=== PATIENT | female | born 1935 | race Caucasian/White ===

== ENCOUNTER 2017-02-24 22:18 | Emergency (ER) | payer OTHER ==
[~2017-02-24] VITALS: Ht 167.6 cm; Wt 65.4 kg
[2017-02-24 22:25] VITALS: TEMP 36.5; Ht 167.6 cm; Wt 65.4 kg
[2017-02-24] MEDS ORDERED: HydrALAZINE HCL 20 MG/ML VIAL IV. STA (22:43)
--- NOTE | 2017-02-24 22:44 | EMERGENCY ROOM VISIT NOTE ---
History Report prepared by Ginger: Chito El Under the Supervision of: Dr. Kris Erickson D.O. First contact with patient: 22:33 Chief Complaint: HYPERTENSION Stated Complaint: BP 196/106 WITH DIZZINESS History of Present Illness The patient is an 81 year old female who presents to the Emergency Room with complaints of hypertension exacerbation. The patient's blood pressure was 185 / 90 this morning and reached 196 / 106 tonight. Her baseline pressure is 135 / 90. She has been feeling dizzy today. Her blood pressure is normally under control. The patient is only on Labetalol at this time. She notes that she has been stressed about a recent condominium purchase. She was recently also. She has a history of diabetes. Her last A1C was 6.8. Both of her parents of stroke. Source of History: patient Onset: today Position: other (cardiovascular) Symptom Intensity: up to 196 / 106 Quality: other (hypertension) Timing: other (exacerbation) Review of Systems See HPI for pertinent positives and negatives. A total of ten systems were reviewed and were otherwise negative. Past Medical & Surgical Medical Problems: (1) Diabetes (2) HTN (hypertension) Family History FH: stroke Social History Smoking Status: Never Smoker Marital Status: Occupation Status: retired Current/Historical Medications Scheduled Ascorbic Acid (C 500/Janet Hips), 500 MG PO DAILY Calcium W/ Vitamins D & K (Viactiv), 1 TAB PO BID Cholecalciferol (Vitamin D3), 400 UNITS PO DAILY Cod Liver Oil (Cod Liver Oil 1000 mg), 1,000 MG PO DAILY Flaxseed (Linseed) (Flaxseed Oil), 1,200 MG PO DAILY Labetalol Hcl (Normodyne), 100 MG PO DAILY Metformin Hcl Er (Glucophage Er), 500 MG PO BID Multivitamin (Multivitamin), 1 TAB PO DAILY Omeprazole (Prilosec), 20 MG PO DAILY Simvastatin (Zocor), 20 MG PO QPM Allergies Coded Allergies: Aspirin (Verified Allergy, Unknown, asthma, 02/24/17) Cephalexin (Verified Allergy, Unknown, rash, 02/24/17) Ciprofloxacin (Verified Allergy, Unknown, swelling, 02/24/17) Penicillins (Verified Allergy, Unknown, rash, 02/24/17) Sulfamethoxazole w/Trimethoprim (Verified Allergy, Unknown, hives, 02/24/17 ) Physical Exam Vital Signs Date Time Temp Pulse Resp B/P Pulse Ox O2 Delivery O2 Flow Rate FiO2 02/25/17 01:11 95 20 155/88 96 Room Air 02/24/17 23:48 84 20 157/98 95 Room Air 02/24/17 23:11 95 Room Air 02/24/17 23:05 70 20 184/100 95 Room Air 02/24/17 22:55 73 02/24/17 22:55 95 Room Air 02/24/17 22:25 36.5 80 20 212/114 95 Room Air Physical Exam GENERAL: Awake, alert, well-appearing, in no distress. Appears anxious. HENT: Normocephalic, atraumatic. Oropharynx unremarkable. EYES: Normal conjunctiva. Sclera non-icteric. NECK: Supple. No nuchal rigidity. FROM. No JVD. RESPIRATORY: Clear to auscultation. CARDIAC: Regular rate, normal rhythm. Extremities warm and well perfused. Pulses equal. ABDOMEN: Soft, non-distended. No tenderness to palpation. No rebound or guarding. No masses. RECTAL: Deferred. MUSCULOSKELETAL: Chest examination reveals no tenderness. The back is symmetrical on inspection without obvious abnormality. There is no CVA tenderness to palpation. No joint edema. LOWER EXTREMITIES: Calves are equal size bilaterally and non-tender. No edema. No discoloration. NEURO: Normal sensorium. No sensory or motor deficits noted. SKIN: No rash or jaundice noted. Medical Decision & Procedures ER Provider Diagnostic Interpretation: X ray results as stated below per my interpretation and radiologist interpretation. CHEST ONE VIEW PORTABLE HISTORY: severe hypertension COMPARISON: None. FINDINGS: A few linear densities at the left lung base consistent with subsegmental atelectasis. The lungs are otherwise clear. No pleural effusions. No pneumothorax. The heart is normal in size. IMPRESSION: No acute process. Electronically signed by: Trell Rosario M.D. 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 1.9 x 0.6 cm soft tissue component invades the extra axial space and mildly compresses adjacent frontal sulci. Metastatic disease or myeloma are possibilities. Primary benign or malignant skull neoplasm would also be considered. No hemorrhage. No midline shift or herniation. Involutional and microvascular ischemic changes. Left mastoid fluid. Radiologist: Lazaro Morgan MD. Laboratory Results 02/24/17 00:00 Red Blood Count 4.26, Mean Corpuscular Volume 93.2, Mean Corpuscular Hemoglobin 31.5, Mean Corpuscular Hemoglobin Concent 33.8, Mean Platelet Volume 10.5, Neutrophils (%) (Auto) 63.5, Lymphocytes (%) (Auto) 25.3, Monocytes (%) (Auto) 7.8, Eosinophils (%) (Auto) 3.1, Basophils (%) (Auto) 0.3, Neutrophils # (Auto) 4.25, Lymphocytes # (Auto) 1.69, Monocytes # (Auto) 0.52, Eosinophils # (Auto) 0.21, Basophils # (Auto) 0.02 02/24/17 00:00 Test 02/24/17 00:00 White Blood Count 6.69 K/uL (4.8-10.8) Red Blood Count 4.26 M/uL (4.2-5.4) Hemoglobin 13.4 g/dL (12.0-16.0) Hematocrit 39.7 % (37-47) Mean Corpuscular Volume 93.2 fL (80-100) Mean Corpuscular Hemoglobin 31.5 pg (25-34) Mean Corpuscular Hemoglobin Concent 33.8 g/dl (32-36) Platelet Count 198 K/uL (130-400) Mean Platelet Volume 10.5 fL (7.4-10.4) Neutrophils (%) (Auto) 63.5 % Lymphocytes (%) (Auto) 25.3 % Monocytes (%) (Auto) 7.8 % Eosinophils (%) (Auto) 3.1 % Basophils (%) (Auto) 0.3 % Neutrophils # (Auto) 4.25 K/uL (1.4-6.5) Lymphocytes # (Auto) 1.69 K/uL (1.2-3.4) Monocytes # (Auto) 0.52 K/uL (0.11-0.59) Eosinophils # (Auto) 0.21 K/uL (0-0.5) Basophils # (Auto) 0.02 K/uL (0-0.2) RDW Standard Deviation 47.7 fL (36.4-46.3) RDW Coefficient of Variation 14.0 % (11.5-14.5) Immature Granulocyte % (Auto) 0.0 % Immature Granulocyte # (Auto) 0.00 K/uL (0.00-0.02) Prothrombin Time 10.5 SECONDS (9.0-12.0) Prothromb Time International Ratio 1.0 (0.9-1.1) Activated Partial Thromboplast Time 24.0 SECONDS (21.0-31.0) Partial Thromboplastin Ratio 0.9 Anion Gap 9.0 mmol/L (3-11) Est Creatinine Clear Calc Drug Dose 29.5 ml/min Estimated GFR () 40.7 Estimated GFR (Non- 35.1 BUN/Creatinine Ratio 17.1 (10-20) Calcium Level 9.6 mg/dl (8.5-10.1) Total Bilirubin 0.3 mg/dl (0.2-1) Direct Bilirubin 0.1 mg/dl (0-0.2) Aspartate Amino Transf (AST/SGOT) 13 U/L (15-37) Alanine Aminotransferase (ALT/SGPT) 22 U/L (12-78) Alkaline Phosphatase 53 U/L (45-117) Total Protein 7.1 gm/dl (6.4-8.2) Albumin 4.4 gm/dl (3.4-5.0) Laboratory results reviewed by me Medications Administered Medications (Trade) Dose Ordered Sig/Alvarez Route Start Time Stop Time Status Last Admin Dose Admin Hydralazine HCl (HydrALAZINE INJ) 10 mg NOW STAT IV. 02/24/17 22:43 02/24/17 22:44 DC 02/24/17 23:03 10 MG ECG Indication: other (hypertension) Rate (beats per minute): 71 Rhythm: normal sinus Findings: no acute ischemic change, other (normal axis, normal intervals) ED Course 2234: The patient was evaluated in room B3b. A complete history and physical exam was performed. 3: Hydralazine HCl 10 mg IV. 0115: Patient had an MRI in August after having a similar finding the prior May. The patient is aware that she needs follow up. Medical Decision Differential diagnosis hypertensive episode, hypertensive crisis, hypertensive urgency, renal failure, cardiac dysrhythmia. Repeat examination the patient at 1:20 AM her blood pressures 150/70. She is resting in no distress she is nonfocal neurologically NIH score is 0. I discussed her CAT scan finding of a lytic lesion to the frontal bone on the left side with her. She states that she may have had an MRI for similar presentation in August and the [place]. Patient would like to go home she is going to follow up in [place] with her primary care physician get these records and see if this compares to the MRI. She is aware that this could be cancer and her daughter is aware as well. Patient would like to be discharged her blood pressure is decreased and she will follow up regarding this abnormal CT Impression Primary Impression: HTN (hypertension) Additional Impression: Frontal skull lesion Scribe Attestation The scribe's documentation has been prepared under my direction and personally reviewed by me in its entirety. I confirm that the note above accurately reflects all work, treatment, procedures, and medical decision making performed by me. Departure Information Dispostion Home / Self-Care Referrals No Doctor, Assigned (PCP) Forms HOME CARE DOCUMENTATION FORM, IMPORTANT VISIT INFORMATION Patient Instructions ED HTN Established, My [facility] Additional Instructions Follow-up with her primary care physician for further evaluation of the CT of the brain and have your primary care physician compare this CT with the MRI of the brain you had in August 2016. Problem Qualifiers Primary Impression: HTN (hypertension) Hypertension type: essential hypertension Qualified Codes: I10 - Essential ( primary) hypertension
--- NOTE | 2017-02-24 23:02 | DIAGNOSTIC IMAGING REPORT ---
CHEST ONE VIEW PORTABLE HISTORY: severe hypertension COMPARISON: None. FINDINGS: A few linear densities at the left lung base consistent with subsegmental atelectasis. The lungs are otherwise clear. No pleural effusions. No pneumothorax. The heart is normal in size. IMPRESSION: No acute process. Electronically signed by: Trell Rosario M.D. 02/24/2017 11:01 PM Dictated Date/Time: 02/24/2017 10:58 PM
[2017-02-24 23:11] VITALS: O2SAT 95
[2017-02-24 23:12] LABS: BASO % 0.3 %; BASO ABS # 0.02 K/uL (0-0.2); COMPLETE YES; EOS % 3.1 %; HEMATOCRIT 39.7 % (37-47); LYMPH % 25.3 %; LYMPH ABS # 1.69 K/uL (1.2-3.4); MEAN CELL VOLUME 93.2 fL (80-100); MEAN CORPUSCULAR HEMOGLOBIN 31.5 pg (25-34); MEAN CORPUSCULAR HGB CONC 33.8 g/dl (32-36); MEAN PLATELET VOLUME 10.5 fL (7.4-10.4); MONO % 7.8 %; NEUT % 63.5 %; PLATELET COUNT 198 K/uL (130-400); RED BLOOD COUNT 4.26 M/uL (4.2-5.4); WHITE BLOOD COUNT 6.69 K/uL (4.8-10.8)
[2017-02-24 23:22] LABS: PARTIAL THROMBOPLASTIN RATIO 0.9; PROTHROMBIN TIME (PATIENT) 10.5 SECONDS (9.0-12.0)
[2017-02-24 23:31] LABS: BUN/CREATININE RATIO 17.1 (10-20); CALCIUM 9.6 mg/dl (8.5-10.1); CREATININE 1.4 mg/dl (0.60-1.20); POTASSIUM 3.6 mmol/L (3.5-5.1)
[2017-02-25] MEDS ORDERED: LBT/100 PO (00:01)
[2017-02-25] MEDS ORDERED: METF500T5 PO (00:02)
[2017-02-25] MEDS ORDERED: SIMV20TA2 PO (00:03)
[2017-02-25] MEDS ORDERED: PRLSR20 PO (00:04)
[2017-02-25] MEDS ORDERED: FLAX12003 PO (00:05)
[2017-02-25] MEDS ORDERED: ASCO1TAB4 PO (00:06)
[2017-02-25] MEDS ORDERED: CALC8.5C PO (00:08)
[2017-02-25] MEDS ORDERED: MULT-506 PO (00:09)
[2017-02-25] MEDS ORDERED: CHOL1CAP30 PO (00:10)
[2017-02-25] MEDS ORDERED: COD1000C PO (00:11)
[2017-02-25 01:54] VITALS: BP 172/99; PULSE 101; O2SAT 98
--- NOTE | 2017-02-25 07:15 | DIAGNOSTIC IMAGING REPORT ---
CT OF THE HEAD WITHOUT CONTRAST CLINICAL HISTORY: Dizzy. Headache. Hypertension. COMPARISON STUDY: No previous studies for comparison. CT DOSE: 614.27 mGy.cm TECHNIQUE: Helical axial images of the head were obtained without IV contrast. Automated exposure control was utilized for the study. FINDINGS: No acute intracranial hemorrhage, midline shift or mass effect is present. Ventricular system is normal. Basilar cisterns are patent. Moderate white matter hypodensity suggests small vessel disease. There are no findings to suggest acute dural sinus thrombosis or acute territorial infarct. There is a small amount of fluid within the left mastoid air cells. The sinuses are clear. Note is made of a 3.1 cm lytic lesion within the left frontal bone. There is thinning of the inner table of the calvarium with suspected intracranial extension of this lesion with a 2.7 x 1 cm hypodense component extending into the extra-axial space. IMPRESSION: 1. No acute intracranial hemorrhage. 2. 3.1 cm lytic lesion within the left frontal bone with suspected intracranial extension, as described above. Differential considerations include benign and malignant etiologies such as metastatic disease, myeloma and benign and malignant calvarial lesions. An MRI the brain with and without contrast could be obtained. Correlation with history of malignancy is also recommended. 3. Small amount of fluid within the left mastoid air cells. Electronically signed by: Charly Guajardo M.D. 02/25/2017 7:14 AM Dictated Date/Time: 02/25/2017 7:08 AM
== END 2017-02-25 01:54 | disposition home or self-care (01) ==
LOC: MERGE 22:21 → EDBD 22:21 → C.EDB 22:21
DX: I10 Essential (primary) hypertension (principal); M85.88 Other specified disorders of bone density and structure, other site; Z79.899 Other long term (current) drug therapy; E11.9 Type 2 diabetes mellitus without complications; Z82.3 Family history of stroke

== ENCOUNTER → 2017-11-16 | Outpatient (CLI) | payer OTHER ==
[~2017-11-16] MED LIST: ASCO1TAB4 PO; CALC8.5C PO; CHOL1CAP30 PO; COD1000C PO; FLAX12003 PO; LBT/100 PO; METF500T5 PO; MULT-506 PO; PRLSR20 PO; SIMV20TA2 PO
[2017-11-16 12:28] LABS: BASO % 0.3 %; BASO ABS # 0.02 K/uL (0-0.2); EOS % 2.3 %; EOS ABS # 0.15 K/uL (0-0.5); HEMATOCRIT 40.4 % (37-47); HEMOGLOBIN 13.7 g/dL (12.0-16.0); IG# 0.02 K/uL (0.00-0.02); LYMPH ABS # 1.12 K/uL (1.2-3.4); MEAN CELL VOLUME 94.2 fL (80-100); MEAN CORPUSCULAR HEMOGLOBIN 31.9 pg (25-34); MEAN CORPUSCULAR HGB CONC 33.9 g/dl (32-36); MONO % 9.4 %; MONO ABS # 0.62 K/uL (0.11-0.59); NEUT % 70.7 %; NEUT ABS # 4.66 K/uL (1.4-6.5); PLATELET COUNT 185 K/uL (130-400); WHITE BLOOD COUNT 6.59 K/uL (4.8-10.8)
[2017-11-16 12:49] LABS: HEMOGLOBIN A1C 6.4 % (4.5-5.6)
[2017-11-16 13:42] LABS: ALBUMIN 3.9 gm/dl (3.4-5.0); ALT/SGPT 20 U/L (12-78); AST/SGOT 16 U/L (15-37); BLOOD UREA NITROGEN 19 mg/dl (7-18); CALCIUM 9.2 mg/dl (8.5-10.1); CARBON DIOXIDE 28 mmol/L (21-32); CREATININE 1.02 mg/dl (0.60-1.20); GLUCOSE 119 mg/dl (70-99); SODIUM 134 mmol/L (136-145); TOTAL PROTEIN 6.9 gm/dl (6.4-8.2)
[2017-11-16 13:55] LABS: ALKALINE PHOSPHATASE 48 U/L (45-117); CHOLESTEROL 130 mg/dl (0-200); LDL CHOLESTEROL CALCULATED 53 mg/dl
== END | disposition home or self-care (01) ==
LOC: C.LABBFT 08:10
PROVIDERS: ATTEND Internal Medicine
DX: Z00.00 Encounter for general adult medical examination without abnormal findings (principal); D64.9 Anemia, unspecified; E11.9 Type 2 diabetes mellitus without complications; G45.9 Transient cerebral ischemic attack, unspecified; E78.5 Hyperlipidemia, unspecified; I10 Essential (primary) hypertension

== ENCOUNTER → 2018-02-27 | Outpatient (CLI) | payer OTHER ==
[2018-02-27 16:29] LABS: HEMATOCRIT 35.6 % (37-47); HEMOGLOBIN 11.9 g/dL (12.0-16.0); MEAN CELL VOLUME 88.1 fL (80-100); MEAN CORPUSCULAR HEMOGLOBIN 29.5 pg (25-34); MEAN CORPUSCULAR HGB CONC 33.4 g/dl (32-36); MEAN PLATELET VOLUME 9.8 fL (7.4-10.4); PLATELET COUNT 269 K/uL (130-400); RED CELL DISTRIBUTION WIDTH CV 12.9 % (11.5-14.5); RED CELL DISTRIBUTION WIDTH SD 42.1 fL (36.4-46.3); WHITE BLOOD COUNT 7.77 K/uL (4.8-10.8)
[2018-02-27 16:45] LABS: BLOOD UREA NITROGEN 17 mg/dl (7-18); CALCIUM 9.9 mg/dl (8.5-10.1); CARBON DIOXIDE 29 mmol/L (21-32); CREATININE 1.06 mg/dl (0.60-1.20); GLUCOSE 80 mg/dl (70-99); POTASSIUM 3.9 mmol/L (3.5-5.1); SODIUM 131 mmol/L (136-145)
[2018-02-28 06:25] LABS: HEMOGLOBIN A1C 6.3 % (4.5-5.6)
== END | disposition home or self-care (01) ==
LOC: C.LABBFT 12:30
PROVIDERS: ATTEND Internal Medicine
DX: D64.9 Anemia, unspecified (principal); E11.9 Type 2 diabetes mellitus without complications; I10 Essential (primary) hypertension

== ENCOUNTER 2018-03-02 17:38 | Emergency (ER) | payer OTHER ==
[~2018-03-02] VITALS: Ht 165.1 cm; Wt 66.0 kg
[2018-03-02 17:44] VITALS: TEMP 36.4; Ht 165.1 cm; Wt 66.0 kg
[2018-03-02] MEDS ORDERED: LIDOCAINE/EPINEPH/TETRACAINE 1 EA SYR EXT STA (18:17)
[2018-03-02] MEDS ORDERED: LIDOCAINE 1% BUFFERED INJ 5 ML VIAL INFIL ONE (18:30)
--- NOTE | 2018-03-02 18:50 | EMERGENCY ROOM VISIT NOTE ---
History Report prepared by Ginger: Mariah Feliciano Under the Supervision of: Dr. Thierno Mata M.D. 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 She reports that she was not paying attention to where she was going and ended up tripping and falling. The patient hit her head in the fall and reports a cut on her right eye brow. She also reports some right 5th finger pain. She feels sore all over her body. She denies any vision changes, dental injury, chest pain, SOB, abdominal pain, numbness, or weakness. She is unsure of her tetanus status. She has a history of diabetes. She is on Plavix for a history of TIA. 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 Review of Systems See HPI for pertinent positives & negatives. A total of 10 systems reviewed and were otherwise negative. Past Medical & Surgical Medical Problems: (1) Diabetes (2) HTN (hypertension) Old medical records were reviewed. Nurse's notes were reviewed and I agree with. Family History FH: stroke Social History Smoking Status: Never Smoker Marital Status: Occupation Status: retired Current/Historical Medications Scheduled Ascorbic Acid (C 500/Janet Hips), 500 MG PO DAILY Calcium W/ Vitamins D & K (Viactiv), 1 TAB PO BID Cholecalciferol (Vitamin D3), 400 UNITS PO DAILY Cod Liver Oil (Cod Liver Oil 1000 mg), 1,000 MG PO DAILY Flaxseed (Linseed) (Flaxseed Oil), 1,200 MG PO DAILY Labetalol Hcl (Normodyne), 200 MG PO DAILY Metformin Hcl Er (Glucophage Er), 500 MG PO BID Multivitamin (Multivitamin), 1 TAB PO DAILY Olmesartan/Hctz (Benicar Hct 20/12.5), 1 TAB PO DAILY Allergies Coded Allergies: Aspirin (Verified Allergy, Unknown, asthma, 02/27/17) Cephalexin (Verified Allergy, Unknown, rash, 02/27/17) Ciprofloxacin (Verified Allergy, Unknown, swelling, 02/27/17) Penicillins (Verified Allergy, Unknown, rash, 02/27/17) Sulfamethoxazole w/Trimethoprim (Verified Allergy, Unknown, hives, 02/27/17) Physical Exam Vital Signs Date Time Temp Pulse Resp B/P (MAP) Pulse Ox O2 Delivery O2 Flow Rate FiO2 03/02/18 18:18 82 03/02/18 18:17 72 21 195/103 98 Room Air 03/02/18 17:44 36.4 81 20 179/97 97 Room Air Physical Exam General: Non-ill appearing older female in no acute distress. HEENT: Bandage on her head with a 3 cm laceration on the right eyebrow.. Pupils are equal round and reactive to light. Extraocular movements are intact. Oropharynx is pink with moist mucous membranes. No swelling of the mouth lips or tongue. Neck: Supple with a midline trachea. No meningeal signs or stiffness, no JVD or bruits. No Stridor. Chest: Clear to auscultation bilaterally. No wheezes or rhonchi. No increased work of breathing. Heart: regular rate and rhythm. Abdomen: Soft nontender, nondistended without rebound guarding or rigidity. Extremities: No cyanosis clubbing or edema. No calf tenderness or assymetry. Mild swelling to the right 5th finger over the PIP joint. Spine/Back. Non tender to palpation. No CVA tenderness Skin: Good turgor without rashes. Neurologic exam: Cranial nerves two through 12 are intact. Motor and sensation are intact and symmetrical throughout. Medical Decision & Procedures ER Provider Diagnostic Interpretation: X-ray results as stated below per interpretation by me and the radiologist. Radiology results as stated below per my review and radiologist interpretation: R HAND MIN 3 VIEWS ROUTINE CLINICAL HISTORY: 82 years-old Female presenting with eval for fx on rt fifth finger. TECHNIQUE: Frontal, oblique, and lateral views of the right hand were obtained. COMPARISON: None. FINDINGS: Osteopenia suggested. Mild osteophytosis of the scaphoid-trapezium, trapezium-first metacarpal, and first metatarsophalangeal joints. Thin ossific fragment along the radial aspect of the head of the middle phalanx of the fifth finger is indeterminate. No other evidence of fracture. No malalignment. Chondrocalcinosis of the triangular fibrocartilage complex. IMPRESSION: 1. Thin ossific fragment along the radial aspect of the head of the middle phalanx of the right fifth finger. Correlate for point tenderness to exclude fracture. No other evidence of fracture. 2. Mild degenerative changes as detailed above. Electronically signed by: Ilya Zaldivar M.D. 03/02/2018 7:01 PM Dictated Date/Time: 03/02/2018 6:59 PM HEAD WITHOUT CONTRAST (CT) CLINICAL HISTORY: 82 years-old Female presenting with eval for trauma. TECHNIQUE: Multidetector CT imaging of the head was performed without the use of intravenous contrast. IV contrast: None. A dose lowering technique was used consistent with the principles of ALARA (as low as reasonably achievable). COMPARISON: 02/24/2017. CT DOSE (mGy.cm): The estimated cumulative dose is 1074.88 mGy.cm. FINDINGS: Hub Associate topogram: Unremarkable. Proportional ventricular and sulcal prominence, likely age-related parenchymal volume loss. Periventricular and subcortical white matter hypoattenuation, nonspecific but likely indicative of chronic small vessel ischemic change. No mass effect or midline shift. No hemorrhage or acute territorial infarct. No extra-axial fluid collection. Trace layering fluid in one of the right sphenoid sinuses. Redemonstration of the lytic lesion in the left frontal bone. The remainder of the calvarium is intact. Focal soft tissue gas with limited infiltration of the right frontal region consistent with laceration and contusion. No subjacent osseous injury. IMPRESSION: 1. Chronic small vessel ischemic change. No acute intracranial abnormality. 2. Limited contusion and laceration in the right frontal scalp. 3. Indeterminate lytic lesion in the left frontal bone. Correlate with the history of malignancy. Multiple myeloma is not excluded. Alternatively, this may represent benign bone lesion. Electronically signed by: Ilya Zaldivar M.D. 03/02/2018 6:58 PM Dictated Date/Time: 03/02/2018 6:55 PM FACIAL BONES-MXILLOFAC WITHOUT CLINICAL HISTORY: 82 years-old Female presenting with eval for trauma, right head laceration, fall, on Plavix. TECHNIQUE: Multidetector CT of the face was performed without the use of intravenous contrast. IV contrast: None. A dose lowering technique was used consistent with the principles of ALARA (as low as reasonably achievable). COMPARISON: None. CT DOSE (mGy.cm): The estimated cumulative dose is 1074.88. FINDINGS: Hub Associate topogram: Unremarkable. Polypoid mucosal thickening in the right sphenoid sinus. Paranasal sinuses otherwise clear. Limited fluid in left mastoid air cells. Middle ears clear. No skull base fracture. Nasal bones intact. Orbits normal. Temporomandibular joints intact. Mandible intact. Several teeth are absent. Amalgam limits evaluation of the teeth and oral cavity. Numerous calcifications in the cutis could imply prior cystic acne. Laceration Limited contusion in the right frontal scalp. Minimal right premaxillary contusion. Remaining soft tissues of the face within normal limits. Degenerative changes of the cervical spine. Lung apices clear. IMPRESSION: 1. No acute osseous injury of the face. 2. Laceration and limited contusion of the right frontal scalp with limited contusion of the right premaxillary subcutaneous tissue. Electronically signed by: Ilya Zaldivar M.D. 03/02/2018 7:12 PM Dictated Date/Time: 03/02/2018 7:09 PM CERVICAL SPINE W/O CLINICAL HISTORY: 82 years-old Female presenting with eval for trauma, right head laceration, on Plavix, fall. TECHNIQUE: Multidetector CT of the cervical spine was performed without the use of intravenous contrast. IV contrast: None. A dose lowering technique was used consistent with the principles of ALARA (as low as reasonably achievable). COMPARISON: None. CT DOSE (mGy.cm): The estimated cumulative dose is 1074.88. FINDINGS: Hub Associate topogram: Unremarkable. Normal cervical lordosis. Vertebral bodies maintain normal height and alignment. Intervertebral disc height loss noted at C5-6 and C6-7. Disc osteophyte complexes are evident at every level many with prominent posterior bony spurring. Uncovertebral hypertrophy and facet arthropathy also evident. Osseous neural foraminal narrowing evident on the right at C2-3, right greater than left at C3-4, bilaterally at C4-5, right greater than left C5-6, and bilaterally at C6-7. Degenerative changes of the atlantodental articulation. No acute fracture or subluxation. Skull base intact. Lung apices clear. Partially visualized right frontal scalp laceration and limited contusion. Soft tissues of the neck within normal limits allowing for noncontrast technique. IMPRESSION: 1. No acute osseous injury of the cervical spine. 2. Multilevel degenerative changes. Electronically signed by: Ilya Zaldivar M.D. 03/02/2018 7:09 PM Dictated Date/Time: 03/02/2018 7:04 PM Medications Administered Medications (Trade) Dose Ordered Sig/Alvarez Route Start Time Stop Time Status Last Admin Dose Admin Tetracaine/ Epinephrine/ Lidocaine (L.e.t. Gel 4%/ 1:100/0.5%) 1 ea NOW STAT EXT 03/02/18 18:17 03/02/18 18:22 DC 03/02/18 18:35 1 EA Procedure Location: right forehead Total length: 3 cm Complexity: simple Verbal consent was obtained after the risks and benefits were explained, including but not limited to bleeding, scarring, infection, pain, and bone/joint /nerve damage. At this time, the risks of the procedure are less than the risks of NOT performing the procedure. A time out was taken and the correct patient and site identified. The skin was prepped with betadine. The target area was anesthetized with LET gel. Copious irrigation was performed using NSS. The skin was re-prepped with betadine and a sterile field set. The wound was explored for foreign bodies and none found. Examination revealed no injury to deep structures such as tendons, bone, or significant blood vessels. Debridement was not performed. The wound edges were approximated using 8, 6-0 simple interrupted Ethilon sutures. Hemostasis and excellent approximation was achieved. Antibacterial ointment and a sterile dressing applied. Detailed wound care instructions and signs and symptoms of infection reviewed with the patient. No complications and the patient tolerated the procedure well. ED Course 1807: Past medical records reviewed. The patient was evaluated in room C1B, and a complete history and physical examination were performed. 1923: I reevaluated the patient. She is doing well. I updated her on the results. 1937: I repaired the laceration according to the procedure note above. I discussed the results and treatment plan with her. She verbalized agreement of the treatment plan. The patient was discharged home. Medical Decision Differentials include, but are not limited to; laceration, closed head injury, facial fracture, cervical spine fracture, orthopedic injury. This patient comes in after suffering a mechanical fall and hitting her head she has a laceration above her right eye. She tells me her tetanus booster is within 10 years. She has a [place] Coma Score 15. I did do a CAT scan of her head face and neck given the fact that she is on Plavix. Also x-ray of the right hand. She has no evidence to suggest cardiac pulmonary or intra- abdominal processes. She had no chest pain or syncope. No shortness of breath. let gel was applied and CAT scans were obtained. CAT scans do not show any acute abnormalities. Her laceration was a repaired as outlined above. In regards to her finger there is a small lashawn of bone is possible she is a small avulsion fracture. She is neurologically neurovascular intact. I will have her use a neutral finger splint. She is to apply bacitracin twice a day and keep the wound covered and out of the sunlight. She has no visual changes or hyphema or any evidence of ocular damage. She should follow-up in 5 days for suture removal here or her regular doctor's office. She should return to the ER if: worsening of symptoms, any new problems or concerns. Head Trauma GCS Score: 15 Medication Reconcilliation Current Medication List: was personally reviewed by me Blood Pressure Screening Patient's blood pressure: Elevated blood pressure Blood pressure disposition: Elevated BP felt to be situational, Referred to PCP Impression Primary Impression: Concussion Additional Impressions: Facial laceration Finger fracture, right Scribe Attestation The scribe's documentation has been prepared under my direction and personally reviewed by me in its entirety. I confirm that the note above accurately reflects all work, treatment, procedures, and medical decision making performed by me. Departure Information Dispostion Home / Self-Care Referrals Jaylyn Guajardo M.D. (PCP) Forms HOME CARE DOCUMENTATION FORM, IMPORTANT VISIT INFORMATION Patient Instructions My [facility], Wound Care - [facility] Additional Instructions Rest. Use fingers splint for comfort Return in 5 days for suture removal here or to your doctor's office Apply bacitracin to laceration twice a day, keep covered in the sunlight. Return sooner if: Worsening of symptoms, increasing pain, problems with the wounds such as redness, pus, fever, drainage, any new problems or concerns Follow-up with your doctor early this week for recheck. Problem Qualifiers Additional Impressions:
--- NOTE | 2018-03-02 19:00 | DIAGNOSTIC IMAGING REPORT ---
HEAD WITHOUT CONTRAST (CT) CLINICAL HISTORY: 82 years-old Female presenting with eval for trauma. TECHNIQUE: Multidetector CT imaging of the head was performed without the use of intravenous contrast. IV contrast: None. A dose lowering technique was used consistent with the principles of ALARA (as low as reasonably achievable). COMPARISON: 02/24/2017. CT DOSE (mGy.cm): The estimated cumulative dose is 1074.88 mGy.cm. FINDINGS: Old Coin Dealer topogram: Unremarkable. Proportional ventricular and sulcal prominence, likely age-related parenchymal volume loss. Periventricular and subcortical white matter hypoattenuation, nonspecific but likely indicative of chronic small vessel ischemic change. No mass effect or midline shift. No hemorrhage or acute territorial infarct. No extra-axial fluid collection. Trace layering fluid in one of the right sphenoid sinuses. Redemonstration of the lytic lesion in the left frontal bone. The remainder of the calvarium is intact. Focal soft tissue gas with limited infiltration of the right frontal region consistent with laceration and contusion. No subjacent osseous injury. IMPRESSION: 1. Chronic small vessel ischemic change. No acute intracranial abnormality. 2. Limited contusion and laceration in the right frontal scalp. 3. Indeterminate lytic lesion in the left frontal bone. Correlate with the history of malignancy. Multiple myeloma is not excluded. Alternatively, this may represent benign bone lesion. Electronically signed by: Ilya Zaldivar M.D. 03/02/2018 6:58 PM Dictated Date/Time: 03/02/2018 6:55 PM
--- NOTE | 2018-03-02 19:03 | DIAGNOSTIC IMAGING REPORT ---
R HAND MIN 3 VIEWS ROUTINE CLINICAL HISTORY: 82 years-old Female presenting with eval for fx on rt fifth finger. TECHNIQUE: Frontal, oblique, and lateral views of the right hand were obtained. COMPARISON: None. FINDINGS: Osteopenia suggested. Mild osteophytosis of the scaphoid-trapezium, trapezium-first metacarpal, and first metatarsophalangeal joints. Thin ossific fragment along the radial aspect of the head of the middle phalanx of the fifth finger is indeterminate. No other evidence of fracture. No malalignment. Chondrocalcinosis of the triangular fibrocartilage complex. IMPRESSION: 1. Thin ossific fragment along the radial aspect of the head of the middle phalanx of the right fifth finger. Correlate for point tenderness to exclude fracture. No other evidence of fracture. 2. Mild degenerative changes as detailed above. Electronically signed by: Ilya Zaldivar M.D. 03/02/2018 7:01 PM Dictated Date/Time: 03/02/2018 6:59 PM
--- NOTE | 2018-03-02 19:10 | DIAGNOSTIC IMAGING REPORT ---
CERVICAL SPINE W/O CLINICAL HISTORY: 82 years-old Female presenting with eval for trauma, right head laceration, on Plavix, fall. TECHNIQUE: Multidetector CT of the cervical spine was performed without the use of intravenous contrast. IV contrast: None. A dose lowering technique was used consistent with the principles of ALARA (as low as reasonably achievable). COMPARISON: None. CT DOSE (mGy.cm): The estimated cumulative dose is 1074.88. FINDINGS: Fiberglasser topogram: Unremarkable. Normal cervical lordosis. Vertebral bodies maintain normal height and alignment. Intervertebral disc height loss noted at C5-6 and C6-7. Disc osteophyte complexes are evident at every level many with prominent posterior bony spurring. Uncovertebral hypertrophy and facet arthropathy also evident. Osseous neural foraminal narrowing evident on the right at C2-3, right greater than left at C3-4, bilaterally at C4-5, right greater than left C5-6, and bilaterally at C6-7. Degenerative changes of the atlantodental articulation. No acute fracture or subluxation. Skull base intact. Lung apices clear. Partially visualized right frontal scalp laceration and limited contusion. Soft tissues of the neck within normal limits allowing for noncontrast technique. IMPRESSION: 1. No acute osseous injury of the cervical spine. 2. Multilevel degenerative changes. Electronically signed by: Ilya Zaldivar M.D. 03/02/2018 7:09 PM Dictated Date/Time: 03/02/2018 7:04 PM
--- NOTE | 2018-03-02 19:13 | DIAGNOSTIC IMAGING REPORT ---
FACIAL BONES-MXILLOFAC WITHOUT CLINICAL HISTORY: 82 years-old Female presenting with eval for trauma, right head laceration, fall, on Plavix. TECHNIQUE: Multidetector CT of the face was performed without the use of intravenous contrast. IV contrast: None. A dose lowering technique was used consistent with the principles of ALARA (as low as reasonably achievable). COMPARISON: None. CT DOSE (mGy.cm): The estimated cumulative dose is 1074.88. FINDINGS: Beader topogram: Unremarkable. Polypoid mucosal thickening in the right sphenoid sinus. Paranasal sinuses otherwise clear. Limited fluid in left mastoid air cells. Middle ears clear. No skull base fracture. Nasal bones intact. Orbits normal. Temporomandibular joints intact. Mandible intact. Several teeth are absent. Amalgam limits evaluation of the teeth and oral cavity. Numerous calcifications in the cutis could imply prior cystic acne. Laceration Limited contusion in the right frontal scalp. Minimal right premaxillary contusion. Remaining soft tissues of the face within normal limits. Degenerative changes of the cervical spine. Lung apices clear. IMPRESSION: 1. No acute osseous injury of the face. 2. Laceration and limited contusion of the right frontal scalp with limited contusion of the right premaxillary subcutaneous tissue. Electronically signed by: Ilya Zaldivar M.D. 03/02/2018 7:12 PM Dictated Date/Time: 03/02/2018 7:09 PM
[2018-03-02] MEDS ORDERED: BNC/20125 PO (19:21)
[2018-03-02 20:30] VITALS: BP 171/86; PULSE 86; O2SAT 98
== END 2018-03-02 20:44 | disposition home or self-care (01) ==
LOC: C.EDB 17:39 → C.EDC 20:44
DX: S06.0X9A Concussion with loss of consciousness of unspecified duration, initial encounter (principal); S01.111A Laceration without foreign body of right eyelid and periocular area, initial encounter; S62.606A Fracture of unspecified phalanx of right little finger, initial encounter for closed fracture; E11.9 Type 2 diabetes mellitus without complications; I10 Essential (primary) hypertension; Z79.02 Long term (current) use of antithrombotics/antiplatelets; Z79.84 Long term (current) use of oral hypoglycemic drugs; Z79.899 Other long term (current) drug therapy; Z88.0 Allergy status to penicillin; Z88.1 Allergy status to other antibiotic agents; Z88.2 Allergy status to sulfonamides; Z88.6 Allergy status to analgesic agent; Z86.73 Personal history of transient ischemic attack (TIA), and cerebral infarction without residual deficits; W01.198A Fall on same level from slipping, tripping and stumbling with subsequent striking against other object, initial encounter

== ENCOUNTER → 2018-03-11 | Outpatient (CLI) | payer OTHER ==
[~2018-03-11] MED LIST changes: +BNC/20125 PO; -PRLSR20 PO; -SIMV20TA2 PO
--- NOTE | 2018-03-11 10:41 | DIAGNOSTIC IMAGING REPORT ---
L ANKLE MIN 3 VIEWS ROUTINE CLINICAL HISTORY: S99.912A Left ankle [id number] LEFT ANKLE PAIN COMPARISON: None. DISCUSSION: No acute fractures or dislocations are visualized. There are extensive Achilles calcifications. There is also calcification within the plantar fascia. IMPRESSION: 1. No acute fractures 2. Extensive Achilles calcification. Calcification of the plantar fascia. Electronically signed by: Sen Suarez M.D. 03/11/2018 10:40 AM Dictated Date/Time: 03/11/2018 10:39 AM
== END | disposition home or self-care (01) ==
LOC: C.RAD1850 10:18
PROVIDERS: ATTEND Internal Medicine
DX: S99.912A Unspecified injury of left ankle, initial encounter (principal); M65.872 Other synovitis and tenosynovitis, left ankle and foot; X58.XXXA Exposure to other specified factors, initial encounter

== ENCOUNTER 2022-10-04 21:03 | Observation (INO) ==
[2022-10-04 21:46] LABS: Albumin Globulin Ratio 1.8 (0.9-2); Albumin Level 4.8 gm/dl (3.4-5.0); BUN Creatinine Ratio 21.8 (10-20); Bilirubin,Total 0.5 mg/dl (0.2-1.0); Calcium 10.2 mg/dl (8.5-10.1); Est GFR (African American) 52.6 ml/min; Est GFR (Non-African American) 45.4 ml/min; Globulin 2.6 gm/dl (2.5-4.0); Potassium 4.1 mmol/L (3.5-5.1); Total Protein 7.4 gm/dl (6.0-8.3)
[2022-10-04 22:12] LABS: Basophils # (auto) 0.03 K/uL (0-0.2); Basophils % (auto) 0.4 %; Echinocytes 1+; Eosinophils # (auto) 0.18 K/uL (0-0.50); Eosinophils % (auto) 2.3 %; Hematocrit (blood only) 39.6 % (34.1-44.9); Hemoglobin 13.9 g/dl (12.0-16.0); Immature Granulocytes # (auto) 0.02 K/uL (0.00-0.02); Immature Granulocytes % (auto) 0.3 %; Lymphocytes # (auto) 2.15 K/uL (1.2-3.4); Lymphocytes % (auto) 27.5 %; Mean Corpuscular Hemoglobin 31.3 pg (25.0-34.0); Mean Corpuscular Hgb Conc 35.1 g/dL (32.0-36.0); Mean Corpuscular Volume 89.2 fL (80.0-100.0); Mean Platelet Volume 10.6 fL (9.4-12.3); Monocytes # (auto) 0.82 K/uL (0.24-0.82); Monocytes % (auto) 10.5 %; Neutrophils # (auto) 4.63 K/uL (1.4-6.5); Platelet Count 142 K/uL (130-400); RDW Coefficient of Variation 13.1 % (11.5-14.5); RDW Standard Deviation 43.1 fL (36.4-46.3); Red Blood Count 4.44 M/uL (3.93-5.22); White Blood Count 7.83 K/ul (4.8-10.8)
[2022-10-04] MEDS ORDERED: cefTRIAXone SODIUM 1,000 MG in DEXTROSE 5% AD-VAN 50 ML IV STA (23:25)
[2022-10-04] MEDS ORDERED: metroNIDAZOLE 500 MG/100 ML BAG IV STA (23:25)
--- NOTE | 2022-10-04 23:45 | Emergency Department Note ---
History of Present Illness General Chief complaint: Leg Injury/Pain Stated complaint: CAT BITE, RIGHT LEG SWOLLEN Time Seen by Provider: 10/04/22 22:54 Source: patient Mode of arrival: ambulatory Limitations: no limitations History of Present Illness Provider complaint: Right leg pain, redness, swelling, recent cat bite Maximum Pain Intensity: 1 This is an 86-year-old female presents emerged from due to concern for worsening right leg pain, swelling, and redness. Patient states over the weekend she was bitten by her cat. She states she never saw any bleeding and thought it had may be not broken the skin. She states by Sunday she began noticing redness around the area. She states she went and saw her family doctor and was started on antibiotics. She states she is taken more than 2 days of antibiotics and today the right lower extremity seem to be getting worse. She states the redness is now spreading all the way down her leg, her leg appears more swollen, and it is more tender to touch. She states she was mildly nauseated earlier today however this is past. She did not have any vomiting. She denies fevers, chills, dizziness, or increased fatigue. Patient is a diabetic. Home Medications Medication Instructions Recorded Confirmed Type ascorbic acid (vitamin C) 500 mg 500 mg PO QAM 07/15/18 10/05/22 History tablet (Vitamin C) calcium-vitamin D3-vitamin K 500 1 tab PO QAM 07/15/18 10/05/22 History mg-500 unit-40 mcg chewable tablet (Viactiv) cod liver oil 1 cap PO QAM 07/15/18 10/05/22 History pjydjbbn-pxa-qpiou acid 0.4 1 tab PO QAM 07/15/18 10/05/22 History mg-lycopene 300 mcg-lutein 250 mcg tablet (Centrum Silver) flash glucose sensor (FreeStyle #1 ea 10/19/21 10/05/22 Rx Caty 14 Day Sensor kit) metformin 500 mg tablet,extended 500 mg PO DAILY #90 tabs 10/19/21 10/05/22 Rx release 24 hr clopidogrel 75 mg tablet 75 mg PO DAILY #90 tabs 12/20/21 10/05/22 Rx lancets (Accu-Chek Fastclix Lancet #100 ea 02/07/22 10/05/22 Rx Drum) simvastatin 20 mg tablet 20 mg PO HS #90 tabs 03/07/22 10/05/22 Rx famotidine 20 mg tablet 20 mg PO BID #180 tabs 06/16/22 10/05/22 Rx amlodipine 2.5 mg tablet 2.5 mg PO BID 07/06/22 10/05/22 History doxycycline hyclate 100 mg tablet 100 mg PO BID 7 days #14 tabs 10/02/22 10/05/22 Rx labetalol 100 mg tablet 100 mg PO DAILY 10/02/22 10/05/22 History metronidazole 500 mg tablet 500 mg PO TID 7 days #21 tabs 10/02/22 10/05/22 Rx Allergies Allergy/AdvReac Type Severity Reaction Status Date / Time clams Allergy Severe Anaphylaxis Verified 10/05/22 01:02 oyster extract Allergy Severe Anaphylaxis Verified 10/05/22 01:02 scallops Allergy Severe Anaphylaxis Verified 10/05/22 01:02 aspirin Allergy Unknown asthma Verified 10/05/22 01:02 Bactrim Allergy Unknown hives Verified 02/24/17 11:44 cephalexin Allergy Unknown rash Verified 10/05/22 01:02 ciprofloxacin Allergy Unknown swelling Verified 10/05/22 01:02 Penicillins Allergy Unknown rash Verified 10/05/22 01:02 sulfamethoxazole Allergy Unknown hives Verified 10/05/22 01:02 trimethoprim Allergy Unknown hives Verified 10/05/22 01:02 shellfish derived AdvReac Unknown Verified 10/02/22 15:30 Past Med/Surg History Medical History Anxiety Basal cell carcinoma of nose Cervical stenosis of spine Deviated septum Diabetes mellitus, type 2 Fatty liver disease, nonalcoholic GERD (gastroesophageal reflux disease) History of colon polyps HTN (hypertension) Hyperlipidemia Insomnia Lytic lesion of bone on x-ray skull Migraine BHAVYA (obstructive sleep apnea) Mild - outpatient sleep study completed - no indication for CPAP at that time Osteoarthritis Osteoporosis Squamous cell carcinoma of nose TIA (transient ischemic attack) (~2017) Surgical History History of arthroscopy of right knee History of colonoscopy History of dilatation and curettage History of femoral angiogram no stents History of left cataract extraction History of right hip replacement History of tonsillectomy and adenoidectomy History of tooth extraction wisdom teeth History of total left knee replacement (TKR) History of total right knee replacement (TKR) Status post Mohs surgery for basal cell carcinoma Family History Brother Lung disease Father Hypertension Gallbladder disease Mother Hypertension Denies family history of Ovarian cancer Prostate cancer Myocardial infarction Breast cancer Colorectal cancer Social History Smoking Status: Never smoker Second Hand Exposure: Yes (during childhood ); Hx Alcohol Use: Yes Alcohol type: wine and hard liquor Alcohol Intake Frequency Comment: rarely Hx Substance Use: No Preferred Language: Occitan Communication Ability: Effective Visual Impairment: No Limitations Hearing Ability: Normal Pharmacist Critical Care Required: No Beliefs That Will Affect Care: None marital status: / Current Living Situation: Alone Current Living Situation Comment: has a life alert that she wears all the time current occupational status: retired 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 , 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 Other Information That Helps Us Care for You: No Feels Safe at Home: Yes Safety Concerns: Feels Safe At This Time Childhood Exposure to Second-Hand Smoke: Yes Dental Care, Regularly: Yes Physical Activity Frequency: 5-6 Times per Week Seatbelt Use: always Sunscreen Use: No Assistive Devices: Cane, Denture - Lower and Glasses Review of Systems A total of 10 systems reviewed and were otherwise negative All systems reviewed & are unremarkable except as noted in HPI & below Physical Exam Vital Signs Vital Signs - 24 hr 10/04/22 21:05 10/04/22 22:39 10/04/22 23:49 Temperature 36.5 C Temperature Source Temporal Artery Scan Pulse Rate 96 H Pulse Rate [Finger] 84 73 Pulse Rhythm [Finger] Regular Regular Pulse Strength [Finger] Normal Normal Respiratory Rate 18 19 18 Respiratory Effort / Characteristics Non-Labored Spontaneous Non-Labored Spontaneous Non-Labored Spontaneous Respiratory Depth Normal Normal Normal Respiratory Pattern Regular Regular Blood Pressure 190/121 H Blood Pressure [Left Arm] 165/90 H 145/86 H Blood Pressure Mean 144 Blood Pressure Mean [Left Arm] 115 105 Pulse Oximetry 96 95 95 Oxygen Delivery Method Room Air Room Air Room Air Sepsis New/Unexplained Change in Mental Status N/A Sepsis Action Taken by Nursing No Action Required 10/05/22 00:30 10/05/22 01:01 10/05/22 02:00 Temperature Temperature Source Pulse Rate 88 Pulse Rate [Finger] 80 80 Pulse Rhythm [Finger] Regular Regular Pulse Strength [Finger] Normal Normal Respiratory Rate 18 20 15 Respiratory Effort / Characteristics Non-Labored Spontaneous Non-Labored Spontaneous Respiratory Depth Normal Normal Respiratory Pattern Regular Regular Blood Pressure 148/81 H Blood Pressure [Left Arm] 140/74 Blood Pressure Mean 103 Blood Pressure Mean [Left Arm] 96 Pulse Oximetry 96 92 92 Oxygen Delivery Method Room Air Room Air Sepsis New/Unexplained Change in Mental Status Sepsis Action Taken by Nursing 10/05/22 02:41 Temperature Temperature Source Pulse Rate 80 Pulse Rate [Finger] Pulse Rhythm [Finger] Pulse Strength [Finger] Respiratory Rate 17 Respiratory Effort / Characteristics Respiratory Depth Respiratory Pattern Blood Pressure 134/78 Blood Pressure [Left Arm] Blood Pressure Mean Blood Pressure Mean [Left Arm] Pulse Oximetry 91 Oxygen Delivery Method Room Air Sepsis New/Unexplained Change in Mental Status Sepsis Action Taken by Nursing GENERAL: alert, well appearing, well nourished, no distress, non-toxic EYE EXAM: normal conjunctiva, PERRL and EOM's grossly intact OROPHARYNX: no exudate, no erythema, lips, buccal mucosa, and tongue normal and mucous membranes are moist NECK: supple, no nuchal rigidity, no adenopathy, non-tender LUNGS: Clear to auscultation. Normal chest wall mechanics, no w/r/r HEART: no murmurs, S1 normal and S2 normal ABDOMEN: abdomen soft, non-tender, normo-active bowel sounds, no masses, no rebound or guarding. BACK: Back is symmetrical on inspection and there is no deformity, no midline tenderness, no CVA tenderness. SKIN: no rashes and no bruising UPPER EXTREMITIES: upper extremities are grossly normal. FROM, nml pulses b/l. LOWER EXTREMITIES: FROM, nml pulses b/l. Right lower extremity with erythema noted anterolaterally that begins just inferior to the right knee extending distally down to just superior to the ankle. Mild edema noted compared to the opposite lower extremity. Area marked with a sterile marking pen by nursing staff no additional joint effusions. Well-healed midline incision from prior knee surgery. Compartments soft. NEURO EXAM: Normal sensorium, cranial nerves II-XII grossly intact, normal speech, no gross weakness of arms, no gross weakness of legs. Gross sensation intact. Course Administered Medications Metronidazole (Flagyl) 500 mg in 100 mls @ 100 mls/hr IV Q8H TALIA Stop: 10/12/22 03:32 Last Admin: 10/05/22 06:29 Dose: 100 mls/hr Documented By: SILVIA Discontinued Medications Enoxaparin Sodium (Enoxaparin Inj 40 Mg/0.4 Ml Syr) Confirm Administered Dose 40 mg .ROUTE .STK-MED ONE Stop: 10/05/22 00:59 Last Admin: 10/05/22 00:58 Dose: Not Given Documented By: EDGAR Ceftriaxone Sodium 1,000 mg/ (Dextrose) 50 mls @ 100 mls/hr IV NOW STA Stop: 10/04/22 23:54 Last Infusion: 10/05/22 00:40 Dose: 0 mls/hr Documented By: Admin: 10/04/22 23:45 Dose: 100 mls/hr Documented By: EDGAR Metronidazole (Flagyl) 500 mg in 100 mls @ 100 mls/hr IV NOW STA Stop: 10/05/22 00:24 Last Infusion: 10/05/22 00:40 Dose: 0 mls/hr Documented By: Admin: 10/04/22 23:45 Dose: 100 mls/hr Documented By: EDGAR Medical Decision Making Differential Diagnosis Differential diagnosis includes etiologies such as cellulitis, abscess, MRSA infection, DVT, necrotizing fasciitis, dermatitis, drug eruption, as well as others were entertained. Medical Records Attestation: I reviewed the patient's medical records. Home Medications Current Medication List: was personally reviewed by me Laboratory Data Attestation: I reviewed the patient's lab results. Result diagrams: 10/05/22 06:01 10/05/22 06:01 Lab Results 10/04/22 10/04/22 10/05/22 Range/Units 21:14 21:14 00:30 WBC 7.83 (4.8-10.8) K/ul RBC 4.44 (3.93-5.22) M/uL Hgb 13.9 (12.0-16.0) g/dl Hct 39.6 (34.1-44.9) % MCV 89.2 (80.0-100.0) fL MCH 31.3 (25.0-34.0) pg MCHC 35.1 (32.0-36.0) g/dL RDW Std Deviation 43.1 (36.4-46.3) fL RDW Coeff of Jarrell 13.1 (11.5-14.5) % Plt Count 142 (130-400) K/uL MPV 10.6 (9.4-12.3) fL Immature Gran % (Auto) 0.3 % Neut % (Auto) 59.0 % Lymph % (Auto) 27.5 % Bosque % (Auto) 10.5 % Eos % (Auto) 2.3 % Baso % (Auto) 0.4 % Neut # (Auto) 4.63 (1.4-6.5) K/uL Lymph # (Auto) 2.15 (1.2-3.4) K/uL Bosque # (Auto) 0.82 (0.24-0.82) K/uL Eos # (Auto) 0.18 (0-0.50) K/uL Baso # (Auto) 0.03 (0-0.2) K/uL Immature Gran # (Auto) 0.02 (0.00-0.02) K/uL Echinocytes 1+ Sodium 135 L (136-145) mmol/L Potassium 4.1 (3.5-5.1) mmol/L Chloride 101 (98-107) mmol/L Carbon Dioxide 26 (21-32) mmol/L Anion Gap 8 (3-11) BUN 24 H (6-23) mg/dl Creatinine 1.10 (0.6-1.2) mg/dl Est Cr Clr Drug Dosing 33.0 ml/min Est GFR ( Amer) 52.6 ml/min Est GFR (Non-Af Amer) 45.4 ml/min BUN/Creatinine Ratio 21.8 H (10-20) Glucose 156 H (70-99(Fasting)) mg/dl Calcium 10.2 H (8.5-10.1) mg/dl Total Bilirubin 0.5 (0.2-1.0) mg/dl AST 20 (13-39) U/L ALT 15 (7-52) U/L Alkaline Phosphatase 52 (34-104) U/L Total Protein 7.4 (6.0-8.3) gm/dl Albumin 4.8 (3.4-5.0) gm/dl Globulin 2.6 (2.5-4.0) gm/dl Albumin/Globulin Ratio 1.8 (0.9-2) SARS-CoV-2, RNA, NAAT NEGATIVE (NEGATIVE) MDM Narrative An order was placed for continuous cardiac monitoring. The monitor shows a rate of _76_ with _normal sinus_ rhythm. This is an 86-year-old female presents emergency department due to concern for worsening infection after recent cat bite. Patient had been started on antibiotics by her PCP as an outpatient. She has had more than 48 hours of ant ibiotics and today felt that her leg was increasingly painful with increased erythema and edema. Area outlined here by nursing staff. Patient was afebrile and hemodynamically stable. No significant leukocytosis was noted. Mild hyperglycemia noted, no DKA. Due to concern for failed outpatient treatment, advanced age, and history of diabetes, case discussed with hospitalist for additional inpatient treatment. Impression & Plan Cellulitis, Cat bite, Failure of outpatient treatment, Hyperglycemia Discharge Plan Visit Data Chief Complaint: Leg Injury/Pain Stated Complaint: CAT BITE, RIGHT LEG SWOLLEN ED Provider: Celina Muro Discharge Problem: Cellulitis, Cat bite, Failure of outpatient treatment, Hyperglycemia Patient Disposition: Admitted As Inpatient Discharge Instructions Interventions: ED Discharge Assessment Last Done: 10/05/22 02:41
--- NOTE | 2022-10-05 00:29 | History & Physical Report ---
Date of Service October 05, 2022 Assessment & Plan (1) Cellulitis: Plan: 86-year-old female with history of type 2 diabetes, NAFLD due to, BHAVYA, hypertension, TIA, osteoporosis, migraines who presented to [facility] for evaluation of recurrence of leg redness following a cat bite one week [employer]; her presentation seems consistent with a mild cellulitis. Cellulitis of RLE -- in an individual with T2DM Mild, area outlined in the ER Secondary to cat bite on the anterior clark; the area where the bite occurred was marked Status post refractory rash after doxycycline/metronidazole as an outpatient Her leg redness does seem secondary to a mild case of cellulitis. Her history of DVT in the setting is noted, however, swelling is minimal, erythema is confined within a defined area, and no obvious hx/RFs for DVT formation on adm -- If any significant clinical changes, would consider RLE doppler CFTX + Metro will be continued -- she is allergic to PCNs Monitor CBC (2) HTN (hypertension): Plan: Well-controlled with labetalol and amlodipine; will continue these here (3) Diabetes mellitus, type 2: Plan: Last A1c at goal 7.3% in 04/2022 Check an A1c in the a.m. Hold metformin Sliding scale insulin with carb correction will be initiated Continue statin (4) TIA (transient ischemic attack): Plan: History noted. Continue Plavix Plan Code: Full Diet: CC PPX: Lovenox Dispo: MS History of Present Illness Primary Care Provider: Jaylyn Guajardo MD 86-year-old female with history of type 2 diabetes, NAFLD due to, BHAVYA, hypertension, TIA, osteoporosis, migraines who presented to [facility] for evaluation of leg rash. Patient tells me that approximately 1 week ago (last Sunday) she was accidentally bitten by her cat on the anterior clark of her right lower extremity. She said that it did not, to her knowledge, break the skin or resolving any bleeding. Over the next few days, it did get red and more swollen. She did go to her PCP later last week, for which she was prescribed doxycycline and metronidazole. She said that the rash got much better initially, and the swelling went away. But beginning a day or 2 ago, the redness began coming back. Because of this, she reported to the ER for further evaluation. 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 She denies any pain within her leg in general, or in the knee or ankle. Medications reviewed and include amlodipine, clopidogrel, famotidine, labetalol, metformin, simvastatin. In the ED, patient was found to be mildly hypertensive, with otherwise normal vital signs. Admission labs reveal a normal CBC; chemistries reveal sodium 135, BUN 24/creatinine 1.1, calcium 10.2. The area of erythema was outlined on the right anterior clark. She was given ceftriaxone and metronidazole intravenously. Allergies Allergy/AdvReac Type Severity Reaction Status Date / Time clams Allergy Severe Anaphylaxis Verified 10/05/22 01:02 oyster extract Allergy Severe Anaphylaxis Verified 10/05/22 01:02 scallops Allergy Severe Anaphylaxis Verified 10/05/22 01:02 aspirin Allergy Unknown asthma Verified 10/05/22 01:02 Bactrim Allergy Unknown hives Verified 02/24/17 11:44 cephalexin Allergy Unknown rash Verified 10/05/22 01:02 ciprofloxacin Allergy Unknown swelling Verified 10/05/22 01:02 Penicillins Allergy Unknown rash Verified 10/05/22 01:02 sulfamethoxazole Allergy Unknown hives Verified 10/05/22 01:02 trimethoprim Allergy Unknown hives Verified 10/05/22 01:02 shellfish derived AdvReac Unknown Verified 10/02/22 15:30 Home Medications Medication Instructions Recorded Confirmed Type ascorbic acid (vitamin C) 500 mg 500 mg PO QAM 07/15/18 10/05/22 History tablet (Vitamin C) calcium-vitamin D3-vitamin K 500 1 tab PO QAM 07/15/18 10/05/22 History mg-500 unit-40 mcg chewable tablet (Viactiv) cod liver oil 1 cap PO QAM 18 10/05/22 History pfdndzve-nyt-qlpho acid 0.4 1 tab PO QAM 07/15/18 10/05/22 History mg-lycopene 300 mcg-lutein 250 mcg tablet (Centrum Silver) flash glucose sensor (FreeStyle #1 ea 10/19/21 10/05/22 Rx Caty 14 Day Sensor kit) metformin 500 mg tablet,extended 500 mg PO DAILY #90 tabs 10/19/21 10/05/22 Rx release 24 hr clopidogrel 75 mg tablet 75 mg PO DAILY #90 tabs 12/20/21 10/05/22 Rx lancets (Accu-Chek Fastclix Lancet #100 ea 02/07/22 10/05/22 Rx Drum) simvastatin 20 mg tablet 20 mg PO HS #90 tabs 03/07/22 10/05/22 Rx famotidine 20 mg tablet 20 mg PO BID #180 tabs 06/16/22 10/05/22 Rx amlodipine 2.5 mg tablet 2.5 mg PO BID 07/06/22 10/05/22 History doxycycline hyclate 100 mg tablet 100 mg PO BID 7 days #14 tabs 10/02/22 10/05/22 Rx labetalol 100 mg tablet 100 mg PO DAILY 10/02/22 10/05/22 History metronidazole 500 mg tablet 500 mg PO TID 7 days #21 tabs 10/02/22 10/05/22 Rx Past Med/Surg History Medical History Anxiety Basal cell carcinoma of nose Cervical stenosis of spine Deviated septum Diabetes mellitus, type 2 Fatty liver disease, nonalcoholic GERD (gastroesophageal reflux disease) History of colon polyps HTN (hypertension) Hyperlipidemia Insomnia Lytic lesion of bone on x-ray skull Migraine BHAVYA (obstructive sleep apnea) Mild - outpatient sleep study completed - no indication for CPAP at that time Osteoarthritis Osteoporosis Squamous cell carcinoma of nose TIA (transient ischemic attack) (~2017) Surgical History History of arthroscopy of right knee History of colonoscopy History of dilatation and curettage History of femoral angiogram no stents History of left cataract extraction History of right hip replacement History of tonsillectomy and adenoidectomy History of tooth extraction wisdom teeth History of total left knee replacement (TKR) History of total right knee replacement (TKR) Status post Mohs surgery for basal cell carcinoma Family History Brother Lung disease Father Hypertension Gallbladder disease Mother Hypertension Denies family history of Ovarian cancer Prostate cancer Myocardial infarction Breast cancer Colorectal cancer Social History Smoking Status: Never smoker Second Hand Exposure: Yes (during childhood ); Hx Alcohol Use: Yes Alcohol type: wine and hard liquor Alcohol Intake Frequency Comment: rarely Hx Substance Use: No Preferred Language: Vietnamese Communication Ability: Effective Visual Impairment: No Limitations Hearing Ability: Normal 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 Batter Mixer Required: No Beliefs That Will Affect Care: None marital status: / Current Living Situation: Alone Current Living Situation Comment: has a life alert that she wears all the time current occupational status: retired 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 HEENT: NCAT. - Eyes - Sclera are white, anicteric, and without injection. - Mouth - MMM - Neck - supple, no appreciable JVD Cardiac: Normal rate and regular rhythm; S1 and S2 present with no murmurs, rubs, or gallops. Pulmonary: Good respiratory effort with symmetric expansion of the chest. No use of accessory muscles. Lungs were clear to auscultation bilaterally with no crackles or wheezes. Abdominal: Normoactive bowel sounds. Abdomen was soft, nondistended, and non- tender to palpation. Extremities: Upper and lower extremities are warm and well perfused. No peripheral edema in the lower extremities bilaterally. Dorsalis pedis pulses 2+ bilaterally. Dermatologic: Examination of the right lower extremity reveals a well defined area of blanchable erythema that is outlined and extends up the anterior clark from the ankle. No tenderness to palpation. Psych: Well-developed, well-nourished, appropriately dressed for occasion. Behavior is cooperative and appropriate. Affect is WNL. Insight is appropriate. Results & Data Results & Data ([facility]) Vital Signs (Past 12 Hours) Vital Signs Temp Pulse Pulse Resp BP BP Pulse Ox 10/04/22 23:49 73 18 145/86 H 95 10/04/22 22:39 84 19 165/90 H 95 10/04/22 21:05 36.5 C 96 H 18 190/121 H 96 O2 Del Method 10/04/22 23:49 Room Air 10/04/22 22:39 Room Air 10/04/22 21:05 Room Air Supervising Physician Co-Signing Physician Notes Attending addendum: I have physically seen this patient, have supervised the medical residents activities, and agree with the H&P unless as otherwise noted. Assessment and Plan: Cat bite cellulitis right lower extremity- Failure of outpatient treatment Placed on ceftriaxone 1 g IV daily and metronidazole 5 mg IV every 8 hours Follow clinical examination Verify status of TD Diabetes mellitus holding metformin Placed on Accu-Cheks with SSI Remaining orders and notations as noted Resident Activity Tracking Resident Involvement: Resident Care Provided Care Provided: Adult Hospital Medicine
[2022-10-05] MEDS ORDERED: ACETAMINOPHEN 325 MG TAB PO PRN (00:30)
[2022-10-05] MEDS ORDERED: ENOXAPARIN INJ 40 MG/0.4 ML SYR ONE (00:58)
[2022-10-05] MEDS: metroNIDAZOLE 500 MG/100 ML BAG IV SCH ×2 (06:29→15:24)
[2022-10-05 06:53] LABS: Hemoglobin 12.9 g/dl (12.0-16.0); Mean Corpuscular Hemoglobin 31.4 pg (25.0-34.0); Mean Corpuscular Hgb Conc 34.9 g/dL (32.0-36.0); Mean Platelet Volume 10.5 fL (9.4-12.3); Platelet Count 128 K/uL (130-400); RDW Coefficient of Variation 13.1 % (11.5-14.5); RDW Standard Deviation 43.3 fL (36.4-46.3); Red Blood Count 4.11 M/uL (3.93-5.22); White Blood Count 5.98 K/ul (4.8-10.8)
[2022-10-05 07:02] LABS: Albumin Globulin Ratio 1.9 (0.9-2); Albumin Level 4.2 gm/dl (3.4-5.0); BUN Creatinine Ratio 18.2 (10-20); Bilirubin,Total 0.6 mg/dl (0.2-1.0); Calcium 9.7 mg/dl (8.5-10.1); Creatinine Clr Calc Pharmacy 36.7 ml/min; Est GFR (African American) 59.8 ml/min; Est GFR (Non-African American) 51.6 ml/min; Globulin 2.2 gm/dl (2.5-4.0); Potassium 3.9 mmol/L (3.5-5.1); Total Protein 6.4 gm/dl (6.0-8.3)
[2022-10-05 07:17] LABS: Basophils # (auto) 0.02 K/uL (0-0.2); Basophils % (auto) 0.3 %; Echinocytes 1+; Eosinophils # (auto) 0.15 K/uL (0-0.50); Eosinophils % (auto) 2.5 %; Immature Granulocytes # (auto) 0.01 K/uL (0.00-0.02); Immature Granulocytes % (auto) 0.2 %; Lymphocytes # (auto) 0.62 K/uL (1.2-3.4); Lymphocytes % (auto) 10.4 %; Monocytes # (auto) 0.34 K/uL (0.24-0.82); Monocytes % (auto) 5.7 %; Neutrophils # (auto) 4.84 K/uL (1.4-6.5); Neutrophils % (auto) 80.9 %
[2022-10-05] MEDS ORDERED: LABETALOL HCL 100 MG TAB PO SCH (09:00)
[2022-10-05] MEDS ORDERED: ENOXAPARIN INJ 40 MG/0.4 ML SYR SQ SCH (09:00)
[2022-10-05] MEDS ORDERED: CLOPIDOGREL BISULFATE 75 MG TAB PO SCH (09:00)
[2022-10-05] MEDS ORDERED: FAMOTIDINE 20 MG TAB PO SCH (09:00)
[2022-10-05] MEDS ORDERED: amLODIPine BESYLATE 5 MG TAB PO SCH (09:00)
--- NOTE | 2022-10-05 17:08 | Discharge Summary ---
Date of Service October 05, 2022 Admission HPI Per Admitting Provider 86-year-old female with history of type 2 diabetes, NAFLD due to, BHAVYA, hypertension, TIA, osteoporosis, migraines who presented to [facility] for evaluation of leg rash. Patient tells me that approximately 1 week ago (last Sunday) she was accidentally bitten by her cat on the anterior clark of her right lower extremity. She said that it did not, to her knowledge, break the skin or resolving any bleeding. Over the next few days, it did get red and more swollen. She did go to her PCP later last week, for which she was prescribed doxycycline and metronidazole. She said that the rash got mu ch better initially, and the swelling went away. But beginning a day or 2 ago, the redness began coming back. Because of this, she reported to the ER for further evaluation. 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 She denies any pain within her leg in general, or in the knee or ankle. Medications reviewed and include amlodipine, clopidogrel, famotidine, labetalol, metformin, simvastatin. In the ED, patient was found to be mildly hypertensive, with otherwise normal vital signs. Admission labs reveal a normal CBC; chemistries reveal sodium 135, BUN 24/creatinine 1.1, calcium 10.2. The area of erythema was outlined on the right anterior clark. She was given ceftriaxone and metronidazole intravenously. Principal Diagnosis Cellulitis right leg after cat bite Discharge Exam Pleasant and seated in a chair, conversant, well looking, watching television and telling me the latest news Chest clear to auscultation, moist oral mucosa, anicteric sclerae, Abdomen soft nontender Extremities mild edema right calf compared with the left. [employer] grossly intact Discharge Data Allergies Allergy/AdvReac Type Severity Reaction Status Date / Time clams Allergy Severe Anaphylaxis Verified 10/05/22 01:02 oyster extract Allergy Severe Anaphylaxis Verified 10/05/22 01:02 scallops Allergy Severe Anaphylaxis Verified 10/05/22 01:02 aspirin Allergy Unknown asthma Verified 10/05/22 01:02 Bactrim Allergy Unknown hives Verified 02/24/17 11:44 cephalexin Allergy Unknown rash Verified 10/05/22 01:02 ciprofloxacin Allergy Unknown swelling Verified 10/05/22 01:02 Penicillins Allergy Unknown rash Verified 10/05/22 01:02 sulfamethoxazole Allergy Unknown hives Verified 10/05/22 01:02 trimethoprim Allergy Unknown hives Verified 10/05/22 01:02 shellfish derived AdvReac Unknown Verified 10/02/22 15:30 Consultations 10/05/22 00:02 ED Decision to Admit Stat Hospital Course (1) Cellulitis: Discharged on doxycycline and metronidazole. (2) Cat bite: Advised to get rid of the cat (3) HTN (hypertension): Poorly controlled but no med changes made. CC PCP on October 09 (4) BHAVYA (obstructive sleep apnea): Mild and never prescribed CPAP. Plan The patient got ceftriaxone and metronidazole IV here. Diagnosis was cellulitis after cat bite. She has had the cat for 12 years and it was just playful she says. She had taken doxycycline and metronidazole both p.o. prescribed by her PCP for a day and a half. She has an allergy to penicillin. Amount of antibiotic of choice at discharge is Augmentin. She develops a rash to penicillin as far as she can remember. I will continue doxycycline and metronidazole which she has about a weeks worth from her PCP. She sees her PCP on 09 October per prior appointment. Total Time Total Time Spent Total Time Spent (In Minutes): 32 Discharge Plan Discharge Items Patient Disposition: Home - Self-Care Reason For Visit: CELLULITIS, CAT BITE Discharge Diagnosis: Cellulitis right leg Activity: Resume your previous activity Non-emergency contact: Primary Care Provider Call non-emergency contact if: you have any medication questions Follow-up/Referrals: Jaylyn Guajardo MD [Primary Care Provider] - (see patient by Oct 10 for follow up cellulitis right lower leg after cat bite) Diet: Carb Count or DM1 Addtl Attending Provider Instructions: Consider getting rid of the cat Pending Studies at Discharge: No Stand-Alone Forms: My [facility] eshtery Medications and DC Order Prescriptions: Continued clopidogrel 75 mg tablet 75 mg PO DAILY Qty: 90 3RF (DME) lancets [Accu-Chek Fastclix Lancet Drum] Misc See Rx Instructions .ROUTE .MEDSUPPLY Qty: 100 3RF Rx Instructions: test sugar at least twice a day simvastatin 20 mg tablet 20 mg PO HS Qty: 90 3RF famotidine 20 mg tablet 20 mg PO BID Qty: 180 3RF amlodipine 2.5 mg tablet 2.5 mg PO BID labetalol 100 mg tablet 100 mg PO DAILY doxycycline hyclate 100 mg tablet 100 mg PO BID 7 Days Qty: 14 0RF metronidazole 500 mg tablet 500 mg PO TID 7 Days Qty: 21 0RF metformin 500 mg tablet extended release 24 hr 500 mg PO DAILY Qty: 90 3RF (DME) FreeStyle Caty 14 Day Sensor Kit See Rx Instructions .Route Qty: 1 5RF Rx Instructions: As directed cod liver oil Capsule 1 cap PO QAM ascorbic acid (vitamin C) [Vitamin C] 500 mg Tablet 500 mg PO QAM Centrum Silver 0.4-300-250 mg-mcg-mcg Tablet 1 tab PO QAM calcium-vitamin D3-vitamin K [Viactiv] 500-500-40 mg-unit-mcg Tablet,Chewable 1 tab PO QAM Discharge Orders: Discharge Order (Routine); Ordered 10/05/22 Ordered By: Yeison Linn Admission Data Admit Date/Time: 10/05/22 03:31 Attending Provider: Yeison Linn Admit Provider: Lucien Castaneda Primary Care Provider: Jaylyn Guajardo Other Providers: Nilesh Latham Other Interventions: Discharge Summary Assessment (RN) Last Done: 10/05/22 16:53 Coding Level of Care Code D/C DAY MANAGEMENT >30 MINS Diagnoses Cellulitis L03.90 Cat bite W55.01XA HTN (hypertension) I10 BHAVYA (obstructive sleep apnea) G47.33
[2022-10-05] MEDS ORDERED: SIMVASTATIN 20 MG TAB PO SCH (21:00)
[2022-10-05] MEDS ORDERED: cefTRIAXone SODIUM 1,000 MG in DEXTROSE 5% AD-VAN 50 ML IV SCH (23:00)
--- NOTE | 2022-10-05 23:15 | Billing Data ---
Date of Service October 05, 2022 Coding Level of Care Code INT OBSERVATION CARE 70M LVL 3
== END 2022-10-05 17:45 | disposition home or self-care (01) ==
LOC: ED 21:03 → 3E 21:03 → SUATTDRO 10-05 03:31